=== PATIENT | male | born 1940 | race Caucasian/White ===

== ENCOUNTER 2021-08-29 11:53 | Observation (INO) | payer MEDICARE, OTHER ==
[~2021-08-29] VITALS: Ht 162.6 cm; Wt 68.4 kg
[2021-08-29] MEDS ORDERED: IV NORMAL SALINE 1000ML BAG 1,000 ML IV ONE (12:15)
[2021-08-29 12:26] LABS: BASO % 0 % (0-3); EOS # 0.1 x10^3/uL (0.0-0.7); EOS % 1 % (0-3); HEMATOCRIT 43.2 % (39.0-53.0); HEMOGLOBIN 14.3 g/dL (13.0-17.5); LYMPH # 1.6 x10^3/uL (1.0-4.8); LYMPH % 23 % (24-48); MEAN CORPUSCULAR HEMOGLOBIN 30 pg (25-35); MEAN CORPUSCULAR HGB CONC 33 g/dL (31-37); MEAN CORPUSCULAR VOLUME 91 fL (79-100); MONO # 0.5 x10^3/uL (0.0-1.1); MONO % 7 % (0-9); NEUT # 4.9 x10^3/uL (1.8-7.7); NEUT % 69 % (31-73); PLATELET COUNT 224 x10^3/uL (140-400); RED BLOOD COUNT 4.74 x10^6/uL (4.30-5.70); RED CELL DISTRIBUTION WIDTH 13.7 % (11.5-14.5); WHITE BLOOD COUNT 7.2 x10^3/uL (4.0-11.0)
[2021-08-29 12:35] LABS: PROTHROMBIN TIME PATIENT 12.6 SEC (11.7-14.0)
[2021-08-29 12:37] LABS: CALCIUM 8.8 mg/dL (8.5-10.1); CREATININE 1.2 mg/dL (0.7-1.3); GFR 58.3; POTASSIUM 4.1 mmol/L (3.5-5.1)
[2021-08-29 12:41] LABS: BARBITURATES NEG (NEG); BENZODIAZEPINES NEG (NEG); CANNABINOIDS NEG (NEG); COCAINE NEG (NEG); METHADONE NEG (NEG); OPIATES NEG (NEG); PHENCYCLIDINE NEG (NEG)
[2021-08-29 12:44] LABS: ALBUMIN 3.8 g/dL (3.4-5.0); ALBUMIN/GLOBULIN RATIO 1.4 (1.0-1.7); TOTAL PROTEIN 6.5 g/dL (6.4-8.2)
[2021-08-29 12:45] LABS: AMPHETAMINE/METHAMPHETAMINE NEG (NEG)
[2021-08-29 12:57] LABS: BACTERIA,URINE 0 /HPF (0-FEW); WBC,URINE 0 /HPF (0-4)
--- NOTE | 2021-08-29 13:03 | RAD ---
CT HEAD WITHOUT CONTRAST 08/29/2021 12:27 PM Indication: Generalized weakness, confusion Comparison: None Procedure: Multidetector CT imaging of the head was performed without the administration of contrast. Findings: There is no evidence of acute intracranial hemorrhage. There is no evidence of acute territ orial infarction. Please note that CT is limited for evaluation of acute ischemia. No mass effect or midline shift is identified . The ventricles and basilar cisterns have an appropriate appearance. No abnormal extra-axial fluid collections are seen. No acute osseous changes are identified. Impression: No evidence of acute intracranial abnormality CT DOSING PQRS STATEMENT: One or more of the following individualized dose reduction techniques were utilized for this examinat ion: 1. Automated exposure control 2. Adjustment of the mA and/or kV according to patient size 3. Use of iterative reconstruction technique Electronically signed by: Eduardo Sprague MD (08/29/2021 1:00 PM) [id number]
--- NOTE | 2021-08-29 13:20 | PHYS DOC ---
Past Medical History Past Surgical History: Other Additional Past Surgical Histo: Cardiac stents x2 Smoking Status: Never Smoker Alcohol Use: Rarely Adult General Chief Complaint Chief Complaint: WEAKNESS/GENERALIZED HPI HPI Patient is a 81 year old male presenting to emergency department for evaluation of sudden onset generalized weakness and reported confusion. Patient says that [facility] this [facility] he was having dizziness that he describes as a lightheaded sensation and his vision was becoming blurry but he denied any room spinning or vertigo sensation. He did not tell his about this as he started to feel better and was back to his baseline by the time he left. Patient was then sitting down to watch the Masters and he said all of a sudden he became globally weak and dizzy again feeling lightheaded. His came to check on him and she was asking him questions and he could not answer what the sport he was watching on TV was. After the realized he was confused she called 9 1 and he was brought here for further evaluation. Patient is alert and oriented x3 for me and he denies any pain fevers chills nausea vomiting unilateral weakness numbness or tingling rather he says he just generally feels bad and weak. He is in no acute distress with normal vital signs. Review of Systems Review of Systems Constitutional: Denies fever or chills [] Eyes: Positive transient blurred vision HENT: Denies nasal congestion or sore throat [] Respiratory: Denies cough or shortness of breath [] Cardiovascular: No additional information not addressed in HPI [] GI: Denies abdominal pain, nausea, vomiting, bloody stools or diarrhea [] : Denies dysuria or hematuria [] Musculoskeletal: Denies back pain or joint pain [] Integument: Denies rash or skin lesions [] Neurologic: Denies headache, focal weakness or sensory changes [] All other systems were reviewed and found to be within normal limits, except as documented in this note. Current Medications Current Medications Current Medications Medications (Trade) Dose Ordered Sig/Kishore Start Time Stop Time Status Last Admin Dose Admin Sodium Chloride 1,000 ml @ 1,000 mls/hr 1X ONCE 08/29/21 12:15 08/29/21 13:14 08/29/21 12:27 1,000 MLS/HR Allergies Allergies Allergies Coded Allergies Type Severity Reaction Last Updated Verified No Known Drug Allergies 08/29/21 No Physical Exam Physical Exam Constitutional: Well developed, well nourished, no acute distress, non-toxic appearance. [] HENT: Normocephalic, atraumatic, bilateral external ears normal, oropharynx moist, no oral exudates, nose normal. [] Eyes: PERRLA, EOMI, conjunctiva normal, no discharge. [] Neck: Normal range of motion, no tenderness, supple, no stridor. [] Cardiovascular:Heart rate regular rhythm, no murmur [] Lungs & Thorax: Bilateral breath sounds clear to auscultation [] Abdomen: Bowel sounds normal, soft, no tenderness, no masses, no pulsatile masses. [] Skin: Warm, dry, no erythema, no rash. [] Back: No tenderness, no CVA tenderness. [] Extremities: No tenderness, no cyanosis, no clubbing, ROM intact, no edema. [] Neurologic: Alert and oriented X 3, normal motor function, normal sensory function, no focal deficits noted. Normal juylat-ud-lrwm and wljp-pv-zxdy. 5 out of 5 strength in all extremities. Current Patient Data Vital Signs Vital Signs Date Time Temp Pulse Resp B/P (MAP) Pulse Ox O2 Delivery O2 Flow Rate FiO2 08/29/21 11:55 97.6 59 18 175/82 (113) 100 Room Air 97.6 Lab Values Laboratory Tests Test 08/29/21 11:55 08/29/21 12:23 White Blood Count 7.2 x10^3/uL (4.0-11.0) Red Blood Count 4.74 x10^6/uL (4.30-5.70) Hemoglobin 14.3 g/dL (13.0-17.5) Hematocrit 43.2 % (39.0-53.0) Mean Corpuscular Volume 91 fL (79-100) Mean Corpuscular Hemoglobin 30 pg (25-35) Mean Corpuscular Hemoglobin Concent 33 g/dL (31-37) Red Cell Distribution Width 13.7 % (11.5-14.5) Platelet Count 224 x10^3/uL (140-400) Neutrophils (%) (Auto) 69 % (31-73) Lymphocytes (%) (Auto) 23 % (24-48) L Monocytes (%) (Auto) 7 % (0-9) Eosinophils (%) (Auto) 1 % (0-3) Basophils (%) (Auto) 0 % (0-3) Neutrophils # (Auto) 4.9 x10^3/uL (1.8-7.7) Lymphocytes # (Auto) 1.6 x10^3/uL (1.0-4.8) Monocytes # (Auto) 0.5 x10^3/uL (0.0-1.1) Eosinophils # (Auto) 0.1 x10^3/uL (0.0-0.7) Basophils # (Auto) 0.0 x10^3/uL (0.0-0.2) Prothrombin Time 12.6 SEC (11.7-14.0) Prothrombin Time INR 1.0 (0.8-1.1) Activated Partial Thromboplast Time 27 SEC (24-38) Sodium Level 136 mmol/L (136-145) Potassium Level 4.1 mmol/L (3.5-5.1) Chloride Level 101 mmol/L (98-107) Carbon Dioxide Level 27 mmol/L (21-32) Anion Gap 8 (6-14) Blood Urea Nitrogen 35 mg/dL (8-26) H Creatinine 1.2 mg/dL (0.7-1.3) Estimated GFR (Cockcroft-Gault) 58.3 BUN/Creatinine Ratio 29 (6-20) H Glucose Level 139 mg/dL (70-99) H Calcium Level 8.8 mg/dL (8.5-10.1) Total Bilirubin 1.0 mg/dL (0.2-1.0) Aspartate Amino Transferase (AST) 20 U/L (15-37) Alanine Aminotransferase (ALT) 28 U/L (16-63) Alkaline Phosphatase 66 U/L (46-116) Creatine Kinase 105 U/L (39-308) Troponin I High Sensitivity 6 ng/L (4-75) DG-Lkc-N-Type Natriuretic Peptide 108 pg/mL (0-449) Total Protein 6.5 g/dL (6.4-8.2) Albumin 3.8 g/dL (3.4-5.0) Albumin/Globulin Ratio 1.4 (1.0-1.7) Thyroid Stimulating Hormone (TSH) 5.002 uIU/mL (0.358-3.74) H Ethyl Alcohol Level < 10 mg/dL (0-10) Urine Collection Type Unknown Urine Color (Auto) Light yellow Urine Turbidity Clear Urine pH (Auto) 6.0 (<5.0-8.0) Urine Specific [place] 1.014 (1.000-1.030) Urine Protein (Auto) Negative mg/dL (Negative) Urine Glucose (Auto)(UA) Negative mg/dL (Negative) Urine Ketones (Auto) Negative mg/dL (Negative) Urine Blood (Auto) Negative (Negative) Urine Nitrite Negative (Negative) Urine Bilirubin (Auto) Negative (Negative) Urine Urobilinogen (Auto) Normal mg/dL (Normal) Urine Leukocyte Esterase (Auto) Negative (Negative) Urine RBC 3-5 /HPF (0-2) Urine WBC 0 /HPF (0-4) Urine Squamous Epithelial Cells Occ /LPF Urine Bacteria 0 /HPF (0-FEW) Urine Opiates Screen Neg (NEG) Urine Methadone Screen Neg (NEG) Urine Barbiturates Neg (NEG) Urine Phencyclidine Screen Neg (NEG) Urine Amphetamine/Methamphetamine Neg (NEG) Urine Benzodiazepines Screen Neg (NEG) Urine Cocaine Screen Neg (NEG) Urine Cannabinoids Screen Neg (NEG) Urine Ethyl Alcohol Neg (NEG) Laboratory Tests 08/29/21 11:55 Laboratory Tests 08/29/21 11:55 EKG EKG Sinus rhythm at 57 bpm with normal axis no ST elevation or depression and normal T waves and normal intervals. Radiology/Procedures Radiology/Procedures [] Course & Med Decision Making Course & Med Decision Making Patient's work-up is negative thus far. He has an NIH stroke scale equal to 0. Given patient's confusion with global weakness we will plan on admission for further observation and treatment. He is not a TPA candidate given he has an NIH stroke scale of 0 and there is no signs or symptoms of a large vessel occlusion. Dr. Gutierrez will be consulted regarding his confusion. Dragon Disclaimer Dragon Disclaimer This electronic medical record was generated, in whole or in part, using a voice recognition dictation system. Departure Departure Impression: Primary Impression: Confusion Additional Impression: Generalized weakness Disposition: ADMITTED INPATIENT Admitting Physician: ALYCIA Hilario) Condition: STABLE Referrals: AMANDA KHAN III, MD (PCP) Problem Qualifiers NICHELLE OLIVAREZ DO Aug 29, 2021 13:20
[2021-08-29] MEDS ORDERED: ONDANSETRON PF 4 MG/2 ML VIAL. IVP PRN (13:30)
--- NOTE | 2021-08-29 14:12 | EKG ---
[facility] [address] [place] [address] Test Date: 2021-08-29 Test Time: 12:01:40 Pat Name: YOLY SINGH Department: Room: Gender: M Bricklayer Apprentice: : 1940 Requested By: NICHELLE OLIVAREZ Order Number: [id number] Reading MD: Ruben Benjamin Measurements Intervals Ho[place] Rate: 57 P: 44 IN: 154 QRS: 2 QRSD: 84 T: 28 QT: 390 QTc: 382 Interpretive Statements SINUS RHYTHM NORMAL ECG RI6.02 No previous ECG available for comparison Electronically Signed On 09-06-2021 14:21:58 CDT by Ruben Benjamin
--- NOTE | 2021-08-29 14:39 | PDOC2 ---
NEUROLOGY CONSULT Date of Service DOS: DATE: 08/29/21 TIME: 14:35 Reason for Consult Reason for Consult: Altered mental status Source Source: Caregiver (), Chart review, Patient History of Present Illness History of Present Illness The patient is an 81-year-old right-handed male who went to [facility] this morning and was dizzy and a little bit confused. He had blurred vision. There was no true vertigo, diplopia, dysphagia, dysarthria, numbness, or weakness. He felt back to himself within a few minutes and then went home to watch the Masters. All of a sudden he became globally weak and confused. He was dizzy. His says that he had trouble figuring out what the Masters was even though he plays golf several times a week. She called 911. Blood pressure is elevated more than his usual, the patient says. He is feeling a lot better now. He denies headache. There is no prior history of stroke, seizure, or head injury. Past Medical History Cardiovascular: HTN Past Surgical History Past Surgical History: No pertinent history Family History Family History: No pertinent hx Social History Social History , occasional alcohol, retired, no tobacco Current Medications Current Medications Current Medications Sodium Chloride 1,000 ml @ 1,000 mls/hr 1X ONCE IV Last administered on 08/29/21at 12:27; Start 08/29/21 at 12:15; Stop 08/29/21 at 13:14; Status DC Ondansetron HCl (Zofran) 4 mg PRN Q8HRS PRN IVP NAUSEA/VOMITING; Start 08/29/21 at 13:30; Stop 08/30/21 at 13:29 Allergies Allergies: Coded Allergies: No Known Drug Allergies (Unverified , 08/29/21) ROS Review of System Negative for fever, chills, weight loss, shortness of breath, chest pain, indigestion, hematochezia, melena, and dysuria. Full 14-point review of systems is negative. Physical Exam Physical Examination General: Well-developed, well-nourished white male in no acute distress HEENT: Normocephalic andatraumatic. Temporal arteriespulsatile and nontender. Neck: Supple without bruit, no meningismus Musculoskeletal: Stability:see neurologic. Gait exam:see neurologic. Tone:see neurologic.Strength:see neurologic. Neurological: Mental Status:intact, orientation, memory, attention span/concentration, language, fund of knowledge normal, except he does not know the name of the president. Cranial Nerves:Pupils equal and reactive to light, extraocular movements areintact, visual rizzo are full to confrontation. Facial sensation is normal. There is no facial asymmetry. Vestibulo-ocular reflex is intact. Palate elevates and tongue protrudes in midline. All other cranial related problems are negative except as mentioned before.Reflexes:2+ and symmetric with flexor plantar responses. Motor:5/5 strength with normal tone and bulk. Coordination:Finger-nose finger and hnco-fu-zqqs testing are normal. Rapid alternating movements and fine finger movements are intact. Gait:Not tested. Sensory:Normal pinprick, vibration, light touch, proprioception. Vitals VITALS Vital Signs Date Time Temp Pulse Resp B/P (MAP) Pulse Ox O2 Delivery O2 Flow Rate FiO2 08/29/21 11:55 97.6 59 18 175/82 (113) 100 Room Air 97.6 Labs Labs Laboratory Tests Test 08/29/21 11:55 08/29/21 12:23 White Blood Count 7.2 x10^3/uL (4.0-11.0) Red Blood Count 4.74 x10^6/uL (4.30-5.70) Hemoglobin 14.3 g/dL (13.0-17.5) Hematocrit 43.2 % (39.0-53.0) Mean Corpuscular Volume 91 fL (79-100) Mean Corpuscular Hemoglobin 30 pg (25-35) Mean Corpuscular Hemoglobin Concent 33 g/dL (31-37) Red Cell Distribution Width 13.7 % (11.5-14.5) Platelet Count 224 x10^3/uL (140-400) Neutrophils (%) (Auto) 69 % (31-73) Lymphocytes (%) (Auto) 23 % (24-48) Monocytes (%) (Auto) 7 % (0-9) Eosinophils (%) (Auto) 1 % (0-3) Basophils (%) (Auto) 0 % (0-3) Neutrophils # (Auto) 4.9 x10^3/uL (1.8-7.7) Lymphocytes # (Auto) 1.6 x10^3/uL (1.0-4.8) Monocytes # (Auto) 0.5 x10^3/uL (0.0-1.1) Eosinophils # (Auto) 0.1 x10^3/uL (0.0-0.7) Basophils # (Auto) 0.0 x10^3/uL (0.0-0.2) Prothrombin Time 12.6 SEC (11.7-14.0) Prothromb Time International Ratio 1.0 (0.8-1.1) Activated Partial Thromboplast Time 27 SEC (24-38) Sodium Level 136 mmol/L (136-145) Potassium Level 4.1 mmol/L (3.5-5.1) Chloride Level 101 mmol/L (98-107) Carbon Dioxide Level 27 mmol/L (21-32) Anion Gap 8 (6-14) Blood Urea Nitrogen 35 mg/dL (8-26) Creatinine 1.2 mg/dL (0.7-1.3) Estimated GFR (Cockcroft-Gault) 58.3 BUN/Creatinine Ratio 29 (6-20) Glucose Level 139 mg/dL (70-99) Calcium Level 8.8 mg/dL (8.5-10.1) Total Bilirubin 1.0 mg/dL (0.2-1.0) Aspartate Amino Transf (AST/SGOT) 20 U/L (15-37) Alanine Aminotransferase (ALT/SGPT) 28 U/L (16-63) Alkaline Phosphatase 66 U/L (46-116) Creatine Kinase 105 U/L (39-308) Troponin I High Sensitivity 6 ng/L (4-75) LO-Aqh-Y-Type Natriuretic Peptide 108 pg/mL (0-449) Total Protein 6.5 g/dL (6.4-8.2) Albumin 3.8 g/dL (3.4-5.0) Albumin/Globulin Ratio 1.4 (1.0-1.7) Thyroid Stimulating Hormone (TSH) 5.002 uIU/mL (0.358-3.74) Ethyl Alcohol Level < 10 mg/dL (0-10) Urine Collection Type Unknown Urine Color (Auto) Light yellow Urine Turbidity Clear Urine pH (Auto) 6.0 (<5.0-8.0) Urine Specific [place] 1.014 (1.000-1.030) Urine Protein (Auto) Negative mg/dL (Negative) Urine Glucose (Auto)(UA) Negative mg/dL (Negative) Urine Ketones (Auto) Negative mg/dL (Negative) Urine Blood (Auto) Negative (Negative) Urine Nitrite Negative (Negative) Urine Bilirubin (Auto) Negative (Negative) Urine Urobilinogen (Auto) Normal mg/dL (Normal) Urine Leukocyte Esterase (Auto) Negative (Negative) Urine RBC 3-5 /HPF (0-2) Urine WBC 0 /HPF (0-4) Urine Squamous Epithelial Cells Occ /LPF Urine Bacteria 0 /HPF (0-FEW) Urine Opiates Screen Neg (NEG) Urine Methadone Screen Neg (NEG) Urine Barbiturates Neg (NEG) Urine Phencyclidine Screen Neg (NEG) Urine Amphetamine/Methamphetamine Neg (NEG) Urine Benzodiazepines Screen Neg (NEG) Urine Cocaine Screen Neg (NEG) Urine Cannabinoids Screen Neg (NEG) Urine Ethyl Alcohol Neg (NEG) Laboratory Tests Test 08/29/21 11:55 08/29/21 12:23 White Blood Count 7.2 x10^3/uL (4.0-11.0) Red Blood Count 4.74 x10^6/uL (4.30-5.70) Hemoglobin 14.3 g/dL (13.0-17.5) Hematocrit 43.2 % (39.0-53.0) Mean Corpuscular Volume 91 fL (79-100) Mean Corpuscular Hemoglobin 30 pg (25-35) Mean Corpuscular Hemoglobin Concent 33 g/dL (31-37) Red Cell Distribution Width 13.7 % (11.5-14.5) Platelet Count 224 x10^3/uL (140-400) Neutrophils (%) (Auto) 69 % (31-73) Lymphocytes (%) (Auto) 23 % (24-48) Monocytes (%) (Auto) 7 % (0-9) Eosinophils (%) (Auto) 1 % (0-3) Basophils (%) (Auto) 0 % (0-3) Neutrophils # (Auto) 4.9 x10^3/uL (1.8-7.7) Lymphocytes # (Auto) 1.6 x10^3/uL (1.0-4.8) Monocytes # (Auto) 0.5 x10^3/uL (0.0-1.1) Eosinophils # (Auto) 0.1 x10^3/uL (0.0-0.7) Basophils # (Auto) 0.0 x10^3/uL (0.0-0.2) Prothrombin Time 12.6 SEC (11.7-14.0) Prothromb Time International Ratio 1.0 (0.8-1.1) Activated Partial Thromboplast Time 27 SEC (24-38) Sodium Level 136 mmol/L (136-145) Potassium Level 4.1 mmol/L (3.5-5.1) Chloride Level 101 mmol/L (98-107) Carbon Dioxide Level 27 mmol/L (21-32) Anion Gap 8 (6-14) Blood Urea Nitrogen 35 mg/dL (8-26) Creatinine 1.2 mg/dL (0.7-1.3) Estimated GFR (Cockcroft-Gault) 58.3 BUN/Creatinine Ratio 29 (6-20) Glucose Level 139 mg/dL (70-99) Calcium Level 8.8 mg/dL (8.5-10.1) Total Bilirubin 1.0 mg/dL (0.2-1.0) Aspartate Amino Transf (AST/SGOT) 20 U/L (15-37) Alanine Aminotransferase (ALT/SGPT) 28 U/L (16-63) Alkaline Phosphatase 66 U/L (46-116) Creatine Kinase 105 U/L (39-308) Troponin I High Sensitivity 6 ng/L (4-75) EV-Mwv-M-Type Natriuretic Peptide 108 pg/mL (0-449) Total Protein 6.5 g/dL (6.4-8.2) Albumin 3.8 g/dL (3.4-5.0) Albumin/Globulin Ratio 1.4 (1.0-1.7) Thyroid Stimulating Hormone (TSH) 5.002 uIU/mL (0.358-3.74) Ethyl Alcohol Level < 10 mg/dL (0-10) Urine Collection Type Unknown Urine Color (Auto) Light yellow Urine Turbidity Clear Urine pH (Auto) 6.0 (<5.0-8.0) Urine Specific [place] 1.014 (1.000-1.030) Urine Protein (Auto) Negative mg/dL (Negative) Urine Glucose (Auto)(UA) Negative mg/dL (Negative) Urine Ketones (Auto) Negative mg/dL (Negative) Urine Blood (Auto) Negative (Negative) Urine Nitrite Negative (Negative) Urine Bilirubin (Auto) Negative (Negative) Urine Urobilinogen (Auto) Normal mg/dL (Normal) Urine Leukocyte Esterase (Auto) Negative (Negative) Urine RBC 3-5 /HPF (0-2) Urine WBC 0 /HPF (0-4) Urine Squamous Epithelial Cells Occ /LPF Urine Bacteria 0 /HPF (0-FEW) Urine Opiates Screen Neg (NEG) Urine Methadone Screen Neg (NEG) Urine Barbiturates Neg (NEG) Urine Phencyclidine Screen Neg (NEG) Urine Amphetamine/Methamphetamine Neg (NEG) Urine Benzodiazepines Screen Neg (NEG) Urine Cocaine Screen Neg (NEG) Urine Cannabinoids Screen Neg (NEG) Urine Ethyl Alcohol Neg (NEG) Images Images CT HEAD WITHOUT CONTRAST 08/29/2021 12:27 PM Indication: Generalized weakness, confusion Comparison: None Procedure: Multidetector CT imaging of the head was performed without the administration of contrast. Findings: There is no evidence of acute intracranial hemorrhage. There is no evidence of acute territorial infarction. Please note that CT is limited for evaluation of acute ischemia. No mass effect or midline shift is identified . The ventricles and basilar cisterns have an appropriate appearance. No abnormal extra-axial fluid collections are seen. No acute osseous changes are identified. Impression: No evidence of acute intracranial abnormality Assessment/Plan Assessment/Plan Impression: Global neurological issues, nothing that focal, nonfocal exam, and symptoms are improving. I suspect this is hypertensive encephalopathy. I find no evidence of stroke. There are no obvious other metabolic issues. Recommendations: Permissive hypertension for now Aspirin CT angiogram today MRI of the brain on a routine basis Not a candidate for alteplase given the fact that symptoms started 5 and half hours ago and again I have a low suspicion that this is a stroke. Discussed with patient and his Discussed with Dr. Morales Thank you for letting me help with the patient's care. BYRON CRAFT MD Aug 29, 2021 14:39
[2021-08-29] MEDS ORDERED: IOHEXOL 350 MG/ML 100 ML VIAL. IV ONE (14:45)
[2021-08-29] MEDS ORDERED: ASPIRIN RECTAL 300 MG SUPP. PR PRN (14:45)
[2021-08-29] MEDS ORDERED: CONTRAST GIVEN. MC PRN (14:45)
--- NOTE | 2021-08-29 16:53 | RAD ---
EXAMINATION: CTA HEAD AND NECK W/WO CONTRAST CLINICAL HISTORY: Confusion, dizziness. TECHNIQUE: Spiral high resolution axial images were obtained through the head, neck and superior medi astinum following bolus administration of intravenous contrast for CT angiography. 3D maximum intensi ty projection images also performed. CT Dose Reduction Employed: One or more of the following individualized dose reduction techniques wer e utilized for this examination: 1. Automated exposure control 2. Adjustment of the mA and/or kV ac cording to patient size 3. Use of iterative reconstruction technique. COMPARISON: NECT head same day FINDINGS: BRAIN: No evidence of acute ischemic stroke or intracranial hemorrhage. NECK: Soft Tissues: Unremarkable. Spine: Multilevel cervicothoracic degenerative changes.. Lung Apices: Centrilobular emphysema and dependent subsegmental atelectasis. CT ARTERIOGRAM: Extracranial Circulation: Aortic Arch: Normal branching pattern from the aortic arch. No significant stenosis in the proximal b rachiocephalic vessels. Carotid Stenosis: Right Common: No significant stenosis. Right Internal Carotid Plaque: Moderate mixed plaque in the carotid bulb. Right Internal Carotid Stenosis (% by NASCET Criteria): No significant stenosis. Left Common: No significant stenosis. Left Internal Carotid Plaque: Minimal mixed plaque in the carotid bulb. Left Internal Carotid Stenosis (% by NASCET Criteria): No significant stenosis. Cervical Vertebral Arteries: Patency: Bilateral Dominance: Left Intracranial Circulation: Anterior Circulation: No evidence of large vessel occlusion. Mild calcified plaque in the intracrania l portion of the bilateral internal carotid arteries. Vertebrobasilar Circulation: No evidence of large vessel occlusion. Diminutive vertebrobasilar circul ation with diffusely small caliber vessels in the posterior circulation. IMPRESSION: No evidence of large vessel occlusion or significant carotid arterial stenosis. Diminutive vertebrobasilar circulation with diffusely small caliber vessels. Electronically signed by: Romain Diana DO (08/29/2021 4:51 PM) [id number]
[2021-08-29] MEDS: ASPIRIN ENTERIC COATED 325 MG TABLET.DR. PO SCH (17:03)
[2021-08-29] MEDS ORDERED: LISI20TA18 PO (18:10)
[2021-08-29] MEDS ORDERED: METO-239 PO (18:10)
[2021-08-29] MEDS ORDERED: ATOR40TA59 PO (18:10)
[2021-08-29] MEDS ORDERED: TAMS0.4C97 PO (18:10)
[2021-08-29] MEDS ORDERED: ASPI-630 PO (18:10)
[2021-08-29 19:00] VITALS: BP 164/51
[2021-08-29] MEDS: TAMSULOSIN 0.4 MG CAP.ER.24H. PO SCH (19:00)
[2021-08-29] MEDS: LISINOPRIL 20 MG TABLET PO SCH (19:00)
[2021-08-29] MEDS: METOPROLOL SUCC 24HR ER 50 MG TAB.ER.24H. PO SCH (19:00)
--- NOTE | 2021-08-29 19:18 | PDOC1 ---
History and Physical Date of Admission Date of Admission DATE: 08/29/21 TIME: 19:10 History of Present Illness History of Present Illness Lalo Potter is a 81 year old male admit for new weakness and confusion. He was out today and had new dizziness, was lightheaded. He had to sit down, and the strange sensatino was improved slowly over time. LAte at home, dizzy again and lightheaded and he could not speak or answer and did not respond well, so she called the ambulance. he reports feeling much improved this evening. he still golfs and is very active Past Medical History Cardiovascular: HTN Past Surgical History Past Surgical History: No pertinent history Family History Family History: No Significant Social History Smoke: No ALCOHOL: none Drugs: None Current Problem List Problem List Problems Medical Problems: (1) Confusion Status: Acute (2) Generalized weakness Status: Acute Current Medications Current Medications Current Medications Sodium Chloride 1,000 ml @ 1,000 mls/hr 1X ONCE IV Last administered on 08/29/21at 12:27; Start 08/29/21 at 12:15; Stop 08/29/21 at 13:14; Status DC Ondansetron HCl (Zofran) 4 mg PRN Q8HRS PRN IVP NAUSEA/VOMITING; Start 08/29/21 at 13:30; Stop 08/30/21 at 13:29 Aspirin (Ecotrin) 325 mg DAILYWBKFT PO Last administered on 08/29/21at 17:03; Start 08/29/21 at 15:00 Aspirin (Aspirin Rectal Supp) 300 mg PRN DAILY PRN [place] IF UNABLE TO TAKE PO; Start 08/29/21 at 14:45 Iohexol (Omnipaque 350 Mg/ml) 75 ml 1X ONCE IV Last administered on 08/29/21at 14:49; Start 08/29/21 at 14:45; Stop 08/29/21 at 14:46; Status DC Info (CONTRAST GIVEN -- Rx MONITORING) 1 each PRN DAILY PRN MC SEE COMMENTS; Start 08/29/21 at 14:45; Stop 08/31/21 at 14:44 Aspirin (Aspirin Chewable) 81 mg DAILY PO ; Start 08/30/21 at 09:00; Status Cancel Atorvastatin Calcium (Lipitor) 40 mg HS PO ; Start 08/29/21 at 21:00 Lisinopril (Prinivil) 20 mg DAILY PO ; Start 08/29/21 at 19:00 Metoprolol Succinate (Toprol Xl) 50 mg DAILY PO ; Start 08/29/21 at 19:00 Tamsulosin HCl (Flomax) 0.4 mg DAILY PO ; Start 08/29/21 at 19:00 Active Scripts Active Reported Flomax (Tamsulosin Hcl) 0.4 Mg Cap.er.24h 0.4 Mg PO DAILY Aspirin 81 Mg Tab.chew 81 Mg PO DAILY Atorvastatin Calcium 40 Mg Tablet 40 Mg PO HS Metoprolol Succinate ( Xl ) (Metoprolol Succinate) 25 Mg Tab.er.24h 50 Mg PO DAILY Lisinopril 20 Mg Tablet 20 Mg PO DAILY Allergies Allergies: Coded Allergies: No Known Drug Allergies (Unverified , 08/29/21) ROS General: YES: Chills; No: Night Sweats, Fatigue, Malaise, Appetite, Other PSYCHOLOGICAL ROS: No: Anxiety, Behavioral Disorder, Concentration difficultie, Decreased libido, Depression, Disorientation, Hallucinations, Hostility, Irritablity, Memory difficulties, Mood Swings, Obsessive thoughts, Physical abuse, Sexual abuse, Sleep disturbances, Suicidal ideation, Other Eyes: No Blurry vision, No Decreased vision, No Double vision, No Dry eyes, No Excessive tearing, No Eye Pain, No Itchy Eyes, No Loss of vision, No Photophob ia, No Scotomata, No Uses contacts, No Uses glasses, No Other HEENT: No: Heacaches, Visual Changes, Hearing change, Nasal congestion, Nasal discharge, Oral lesions, Sinus pain, Sore Throat, Epistaxis, Sneezing, Snoring, Tinnitus, Vertigo, Vocal changes, Other Respiratory: No: Cough, Hemoptysis, Orthopnea, Pleuritic Pain, Shortness of breath, SOB with excertion, Sputum Changes, Stridor, Tachypnea, Wheezing, Other Cardiovascular: No Chest Pain, No Palpitations, No Orthopnea, No Paroxysmal Noc. Dyspnea, No Edema, No Lt Headedness, No Other Gastrointestinal: No Nausea, No Vomiting, No Abdominal Pain, No Diarrhea, No Constipation, No Melena, No Hematochezia, No Other Vitals Vitals Vital Signs Date Time Temp Pulse Resp B/P (MAP) Pulse Ox O2 Delivery O2 Flow Rate FiO2 08/29/21 16:57 Room Air 08/29/21 14:04 54 20 176/75 (108) 100 08/29/21 11:55 97.6 97.6 Labs Labs Laboratory Tests Test 08/29/21 11:55 08/29/21 12:23 White Blood Count 7.2 x10^3/uL (4.0-11.0) Red Blood Count 4.74 x10^6/uL (4.30-5.70) Hemoglobin 14.3 g/dL (13.0-17.5) Hematocrit 43.2 % (39.0-53.0) Mean Corpuscular Volume 91 fL (79-100) Mean Corpuscular Hemoglobin 30 pg (25-35) Mean Corpuscular Hemoglobin Concent 33 g/dL (31-37) Red Cell Distribution Width 13.7 % (11.5-14.5) Platelet Count 224 x10^3/uL (140-400) Neutrophils (%) (Auto) 69 % (31-73) Lymphocytes (%) (Auto) 23 % (24-48) Monocytes (%) (Auto) 7 % (0-9) Eosinophils (%) (Auto) 1 % (0-3) Basophils (%) (Auto) 0 % (0-3) Neutrophils # (Auto) 4.9 x10^3/uL (1.8-7.7) Lymphocytes # (Auto) 1.6 x10^3/uL (1.0-4.8) Monocytes # (Auto) 0.5 x10^3/uL (0.0-1.1) Eosinophils # (Auto) 0.1 x10^3/uL (0.0-0.7) Basophils # (Auto) 0.0 x10^3/uL (0.0-0.2) Prothrombin Time 12.6 SEC (11.7-14.0) Prothromb Time International Ratio 1.0 (0.8-1.1) Activated Partial Thromboplast Time 27 SEC (24-38) Sodium Level 136 mmol/L (136-145) Potassium Level 4.1 mmol/L (3.5-5.1) Chloride Level 101 mmol/L (98-107) Carbon Dioxide Level 27 mmol/L (21-32) Anion Gap 8 (6-14) Blood Urea Nitrogen 35 mg/dL (8-26) Creatinine 1.2 mg/dL (0.7-1.3) Estimated GFR (Cockcroft-Gault) 58.3 BUN/Creatinine Ratio 29 (6-20) Glucose Level 139 mg/dL (70-99) Calcium Level 8.8 mg/dL (8.5-10.1) Total Bilirubin 1.0 mg/dL (0.2-1.0) Aspartate Amino Transf (AST/SGOT) 20 U/L (15-37) Alanine Aminotransferase (ALT/SGPT) 28 U/L (16-63) Alkaline Phosphatase 66 U/L (46-116) Creatine Kinase 105 U/L (39-308) Troponin I High Sensitivity 6 ng/L (4-75) DB-Gkx-D-Type Natriuretic Peptide 108 pg/mL (0-449) Total Protein 6.5 g/dL (6.4-8.2) Albumin 3.8 g/dL (3.4-5.0) Albumin/Globulin Ratio 1.4 (1.0-1.7) Thyroid Stimulating Hormone (TSH) 5.002 uIU/mL (0.358-3.74) Ethyl Alcohol Level < 10 mg/dL (0-10) Urine Collection Type Unknown Urine Color (Auto) Light yellow Urine Turbidity Clear Urine pH (Auto) 6.0 (<5.0-8.0) Urine Specific [place] 1.014 (1.000-1.030) Urine Protein (Auto) Negative mg/dL (Negative) Urine Glucose (Auto)(UA) Negative mg/dL (Negative) Urine Ketones (Auto) Negative mg/dL (Negative) Urine Blood (Auto) Negative (Negative) Urine Nitrite Negative (Negative) Urine Bilirubin (Auto) Negative (Negative) Urine Urobilinogen (Auto) Normal mg/dL (Normal) Urine Leukocyte Esterase (Auto) Negative (Negative) Urine RBC 3-5 /HPF (0-2) Urine WBC 0 /HPF (0-4) Urine Squamous Epithelial Cells Occ /LPF Urine Bacteria 0 /HPF (0-FEW) Urine Opiates Screen Neg (NEG) Urine Methadone Screen Neg (NEG) Urine Barbiturates Neg (NEG) Urine Phencyclidine Screen Neg (NEG) Urine Amphetamine/Methamphetamine Neg (NEG) Urine Benzodiazepines Screen Neg (NEG) Urine Cocaine Screen Neg (NEG) Urine Cannabinoids Screen Neg (NEG) Urine Ethyl Alcohol Neg (NEG) Laboratory Tests Test 4/7/22 11:55 08/29/21 12:23 White Blood Count 7.2 x10^3/uL (4.0-11.0) Red Blood Count 4.74 x10^6/uL (4.30-5.70) Hemoglobin 14.3 g/dL (13.0-17.5) Hematocrit 43.2 % (39.0-53.0) Mean Corpuscular Volume 91 fL (79-100) Mean Corpuscular Hemoglobin 30 pg (25-35) Mean Corpuscular Hemoglobin Concent 33 g/dL (31-37) Red Cell Distribution Width 13.7 % (11.5-14.5) Platelet Count 224 x10^3/uL (140-400) Neutrophils (%) (Auto) 69 % (31-73) Lymphocytes (%) (Auto) 23 % (24-48) Monocytes (%) (Auto) 7 % (0-9) Eosinophils (%) (Auto) 1 % (0-3) Basophils (%) (Auto) 0 % (0-3) Neutrophils # (Auto) 4.9 x10^3/uL (1.8-7.7) Lymphocytes # (Auto) 1.6 x10^3/uL (1.0-4.8) Monocytes # (Auto) 0.5 x10^3/uL (0.0-1.1) Eosinophils # (Auto) 0.1 x10^3/uL (0.0-0.7) Basophils # (Auto) 0.0 x10^3/uL (0.0-0.2) Prothrombin Time 12.6 SEC (11.7-14.0) Prothromb Time International Ratio 1.0 (0.8-1.1) Activated Partial Thromboplast Time 27 SEC (24-38) Sodium Level 136 mmol/L (136-145) Potassium Level 4.1 mmol/L (3.5-5.1) Chloride Level 101 mmol/L (98-107) Carbon Dioxide Level 27 mmol/L (21-32) Anion Gap 8 (6-14) Blood Urea Nitrogen 35 mg/dL (8-26) Creatinine 1.2 mg/dL (0.7-1.3) Estimated GFR (Cockcroft-Gault) 58.3 BUN/Creatinine Ratio 29 (6-20) Glucose Level 139 mg/dL (70-99) Calcium Level 8.8 mg/dL (8.5-10.1) Total Bilirubin 1.0 mg/dL (0.2-1.0) Aspartate Amino Transf (AST/SGOT) 20 U/L (15-37) Alanine Aminotransferase (ALT/SGPT) 28 U/L (16-63) Alkaline Phosphatase 66 U/L (46-116) Creatine Kinase 105 U/L (39-308) Troponin I High Sensitivity 6 ng/L (4-75) DE-Yza-D-Type Natriuretic Peptide 108 pg/mL (0-449) Total Protein 6.5 g/dL (6.4-8.2) Albumin 3.8 g/dL (3.4-5.0) Albumin/Globulin Ratio 1.4 (1.0-1.7) Thyroid Stimulating Hormone (TSH) 5.002 uIU/mL (0.358-3.74) Ethyl Alcohol Level < 10 mg/dL (0-10) Urine Collection Type Unknown Urine Color (Auto) Light yellow Urine Turbidity Clear Urine pH (Auto) 6.0 (<5.0-8.0) Urine Specific [place] 1.014 (1.000-1.030) Urine Protein (Auto) Negative mg/dL (Negative) Urine Glucose (Auto)(UA) Negative mg/dL (Negative) Urine Ketones (Auto) Negative mg/dL (Negative) Urine Blood (Auto) Negative (Negative) Urine Nitrite Negative (Negative) Urine Bilirubin (Auto) Negative (Negative) Urine Urobilinogen (Auto) Normal mg/dL (Normal) Urine Leukocyte Esterase (Auto) Negative (Negative) Urine RBC 3-5 /HPF (0-2) Urine WBC 0 /HPF (0-4) Urine Squamous Epithelial Cells Occ /LPF Urine Bacteria 0 /HPF (0-FEW) Urine Opiates Screen Neg (NEG) Urine Methadone Screen Neg (NEG) Urine Barbiturates Neg (NEG) Urine Phencyclidine Screen Neg (NEG) Urine Amphetamine/Methamphetamine Neg (NEG) Urine Benzodiazepines Screen Neg (NEG) Urine Cocaine Screen Neg (NEG) Urine Cannabinoids Screen Neg (NEG) Urine Ethyl Alcohol Neg (NEG) VTE Prophylaxis Ordered VTE Prophylaxis Devices: No VTE Pharmacological Prophylaxi: No Assessment/Plan Assessment/Plan presyncope, watch tele for 23 hours, concern for arrythmia lightheaded and weak episodes, symptoms not consistent with seizure, Dr. Mendoza has seen, and leans to hypertension and encephalopathy r/o CVA , plan MRI obs home htn meds in AM Justifications for Admission Other Justification SOFÍA MÉNDEZ MD Aug 29, 2021 19:18
[2021-08-29] MEDS ORDERED: ATORVASTATIN CALCIUM 40 MG TABLET. PO SCH (21:00)
[2021-08-29] MEDS ORDERED: ZOLPIDEM 5 MG TABLET. PO SCH (22:30)
[2021-08-29 23:00] VITALS: BP 90/54
[2021-08-30 03:00] VITALS: BP 99/61
[2021-08-30 04:51] VITALS: BP 99/61
[2021-08-30 07:00] VITALS: BP 149/67
[2021-08-30] MEDS ORDERED: ASPIRIN CHEWABLE 81 MG TABLET. PO SCH (09:00)
[2021-08-30 09:02] LABS: BASO % 0 % (0-3); EOS # 0.1 x10^3/uL (0.0-0.7); EOS % 1 % (0-3); HEMATOCRIT 42.5 % (39.0-53.0); HEMOGLOBIN 14.1 g/dL (13.0-17.5); LYMPH # 1.4 x10^3/uL (1.0-4.8); LYMPH % 17 % (24-48); MEAN CORPUSCULAR HEMOGLOBIN 30 pg (25-35); MEAN CORPUSCULAR HGB CONC 33 g/dL (31-37); MEAN CORPUSCULAR VOLUME 91 fL (79-100); MONO # 0.5 x10^3/uL (0.0-1.1); MONO % 7 % (0-9); NEUT # 5.9 x10^3/uL (1.8-7.7); NEUT % 75 % (31-73); PLATELET COUNT 221 x10^3/uL (140-400); RED BLOOD COUNT 4.65 x10^6/uL (4.30-5.70); WHITE BLOOD COUNT 7.8 x10^3/uL (4.0-11.0)
[2021-08-30 09:12] LABS: CALCIUM 8.7 mg/dL (8.5-10.1); CREATININE 1.2 mg/dL (0.7-1.3); GFR 58.3; POTASSIUM 4.5 mmol/L (3.5-5.1)
--- NOTE | 2021-08-30 09:18 | PDOC ---
PROGRESS NOTES Date of Service DATE: 08/30/21 TIME: 09:14 Assessment Problems Medical Problems: (1) Confusion Status: Acute (2) Generalized weakness Status: Acute Global neurological issues, nothing that focal, nonfocal exam, and symptoms are improving. I suspect this is hypertensive encephalopathy. I find no evidence of stroke. There are no obvious other metabolic issues. Also consider transient global amnesia, I did not get that picture when I saw him yesterday. Interestingly, though, he is amnestic for most of yesterday. Today he is back to his normal baseline Diminutive vertebrobasilar circulation with diffusely small caliber vessels, of no clinical significance Plan Treat hypertension Aspirin, statin MRI of the brain today Home today if blood pressure stable and MRI negative Discussed with Dr. Yap Subjective No complaints, wants to go home Objective Vital Signs Date Time Temp Pulse Resp B/P (MAP) Pulse Ox O2 Delivery O2 Flow Rate FiO2 08/30/21 07:00 98.3 56 16 149/67 (94) 98 98.3 08/29/21 20:00 Room Air Intake and Output 08/30/21 07:00 Intake Total 1000 ml Balance 1000 ml Intake IV Total 1000 ml # Voids 2 PHYSICAL EXAM Alert. Oriented to time, place and person. PERRL. EOMI. CN: no focal findings. Muscle tone: normal. Muscle strength: 5/5 DTR: 2+ Plantar reflex: Flexor Gait: Normal. Sensory exam: no abnormal findings. No cerebellar signs elicited. Review of Relevant I have reviewed the following items nicole (where applicable) has been applied. Labs Laboratory Tests Test 08/29/21 11:55 08/29/21 12:23 White Blood Count 7.2 x10^3/uL (4.0-11.0) Red Blood Count 4.74 x10^6/uL (4.30-5.70) Hemoglobin 14.3 g/dL (13.0-17.5) Hematocrit 43.2 % (39.0-53.0) Mean Corpuscular Volume 91 fL (79-100) Mean Corpuscular Hemoglobin 30 pg (25-35) Mean Corpuscular Hemoglobin Concent 33 g/dL (31-37) Red Cell Distribution Width 13.7 % (11.5-14.5) Platelet Count 224 x10^3/uL (140-400) Neutrophils (%) (Auto) 69 % (31-73) Lymphocytes (%) (Auto) 23 % (24-48) Monocytes (%) (Auto) 7 % (0-9) Eosinophils (%) (Auto) 1 % (0-3) Basophils (%) (Auto) 0 % (0-3) Neutrophils # (Auto) 4.9 x10^3/uL (1.8-7.7) Lymphocytes # (Auto) 1.6 x10^3/uL (1.0-4.8) Monocytes # (Auto) 0.5 x10^3/uL (0.0-1.1) Eosinophils # (Auto) 0.1 x10^3/uL (0.0-0.7) Basophils # (Auto) 0.0 x10^3/uL (0.0-0.2) Prothrombin Time 12.6 SEC (11.7-14.0) Prothromb Time International Ratio 1.0 (0.8-1.1) Activated Partial Thromboplast Time 27 SEC (24-38) Sodium Level 136 mmol/L (136-145) Potassium Level 4.1 mmol/L (3.5-5.1) Chloride Level 101 mmol/L (98-107) Carbon Dioxide Level 27 mmol/L (21-32) Anion Gap 8 (6-14) Blood Urea Nitrogen 35 mg/dL (8-26) Creatinine 1.2 mg/dL (0.7-1.3) Estimated GFR (Cockcroft-Gault) 58.3 BUN/Creatinine Ratio 29 (6-20) Glucose Level 139 mg/dL (70-99) Calcium Level 8.8 mg/dL (8.5-10.1) Total Bilirubin 1.0 mg/dL (0.2-1.0) Aspartate Amino Transf (AST/SGOT) 20 U/L (15-37) Alanine Aminotransferase (ALT/SGPT) 28 U/L (16-63) Alkaline Phosphatase 66 U/L (46-116) Creatine Kinase 105 U/L (39-308) Troponin I High Sensitivity 6 ng/L (4-75) WV-Gga-X-Type Natriuretic Peptide 108 pg/mL (0-449) Total Protein 6.5 g/dL (6.4-8.2) Albumin 3.8 g/dL (3.4-5.0) Albumin/Globulin Ratio 1.4 (1.0-1.7) Thyroid Stimulating Hormone (TSH) 5.002 uIU/mL (0.358-3.74) Ethyl Alcohol Level < 10 mg/dL (0-10) Urine Collection Type Unknown Urine Color (Auto) Light yellow Urine Turbidity Clear Urine pH (Auto) 6.0 (<5.0-8.0) Urine Specific [place] 1.014 (1.000-1.030) Urine Protein (Auto) Negative mg/dL (Negative) Urine Glucose (Auto)(UA) Negative mg/dL (Negative) Urine Ketones (Auto) Negative mg/dL (Negative) Urine Blood (Auto) Negative (Negative) Urine Nitrite Negative (Negative) Urine Bilirubin (Auto) Negative (Negative) Urine Urobilinogen (Auto) Normal mg/dL (Normal) Urine Leukocyte Esterase (Auto) Negative (Negative) Urine RBC 3-5 /HPF (0-2) Urine WBC 0 /HPF (0-4) Urine Squamous Epithelial Cells Occ /LPF Urine Bacteria 0 /HPF (0-FEW) Urine Opiates Screen Neg (NEG) Urine Methadone Screen Neg (NEG) Urine Barbiturates Neg (NEG) Urine Phencyclidine Screen Neg (NEG) Urine Amphetamine/Methamphetamine Neg (NEG) Urine Benzodiazepines Screen Neg (NEG) Urine Cocaine Screen Neg (NEG) Urine Cannabinoids Screen Neg (NEG) Urine Ethyl Alcohol Neg (NEG) Laboratory Tests Test 08/29/21 11:55 08/29/21 12:23 White Blood Count 7.2 x10^3/uL (4.0-11.0) Red Blood Count 4.74 x10^6/uL (4.30-5.70) Hemoglobin 14.3 g/dL (13.0-17.5) Hematocrit 43.2 % (39.0-53.0) Mean Corpuscular Volume 91 fL (79-100) Mean Corpuscular Hemoglobin 30 pg (25-35) Mean Corpuscular Hemoglobin Concent 33 g/dL (31-37) Red Cell Distribution Width 13.7 % (11.5-14.5) Platelet Count 224 x10^3/uL (140-400) Neutrophils (%) (Auto) 69 % (31-73) Lymphocytes (%) (Auto) 23 % (24-48) Monocytes (%) (Auto) 7 % (0-9) Eosinophils (%) (Auto) 1 % (0-3) Basophils (%) (Auto) 0 % (0-3) Neutrophils # (Auto) 4.9 x10^3/uL (1.8-7.7) Lymphocytes # (Auto) 1.6 x10^3/uL (1.0-4.8) Monocytes # (Auto) 0.5 x10^3/uL (0.0-1.1) Eosinophils # (Auto) 0.1 x10^3/uL (0.0-0.7) Basophils # (Auto) 0.0 x10^3/uL (0.0-0.2) Prothrombin Time 12.6 SEC (11.7-14.0) Prothromb Time International Ratio 1.0 (0.8-1.1) Activated Partial Thromboplast Time 27 SEC (24-38) Sodium Level 136 mmol/L (136-145) Potassium Level 4.1 mmol/L (3.5-5.1) Chloride Level 101 mmol/L (98-107) Carbon Dioxide Level 27 mmol/L (21-32) Anion Gap 8 (6-14) Blood Urea Nitrogen 35 mg/dL (8-26) Creatinine 1.2 mg/dL (0.7-1.3) Estimated GFR (Cockcroft-Gault) 58.3 BUN/Creatinine Ratio 29 (6-20) Glucose Level 139 mg/dL (70-99) Calcium Level 8.8 mg/dL (8.5-10.1) Total Bilirubin 1.0 mg/dL (0.2-1.0) Aspartate Amino Transf (AST/SGOT) 20 U/L (15-37) Alanine Aminotransferase (ALT/SGPT) 28 U/L (16-63) Alkaline Phosphatase 66 U/L (46-116) Creatine Kinase 105 U/L (39-308) Troponin I High Sensitivity 6 ng/L (4-75) NU-Lgb-J-Type Natriuretic Peptide 108 pg/mL (0-449) Total Protein 6.5 g/dL (6.4-8.2) Albumin 3.8 g/dL (3.4-5.0) Albumin/Globulin Ratio 1.4 (1.0-1.7) Thyroid Stimulating Hormone (TSH) 5.002 uIU/mL (0.358-3.74) Ethyl Alcohol Level < 10 mg/dL (0-10) Urine Collection Type Unknown Urine Color (Auto) Light yellow Urine Turbidity Clear Urine pH (Auto) 6.0 (<5.0-8.0) Urine Specific [place] 1.014 (1.000-1.030) Urine Protein (Auto) Negative mg/dL (Negative) Urine Glucose (Auto)(UA) Negative mg/dL (Negative) Urine Ketones (Auto) Negative mg/dL (Negative) Urine Blood (Auto) Negative (Negative) Urine Nitrite Negative (Negative) Urine Bilirubin (Auto) Negative (Negative) Urine Urobilinogen (Auto) Normal mg/dL (Normal) Urine Leukocyte Esterase (Auto) Negative (Negative) Urine RBC 3-5 /HPF (0-2) Urine WBC 0 /HPF (0-4) Urine Squamous Epithelial Cells Occ /LPF Urine Bacteria 0 /HPF (0-FEW) Urine Opiates Screen Neg (NEG) Urine Methadone Screen Neg (NEG) Urine Barbiturates Neg (NEG) Urine Phencyclidine Screen Neg (NEG) Urine Amphetamine/Methamphetamine Neg (NEG) Urine Benzodiazepines Screen Neg (NEG) Urine Cocaine Screen Neg (NEG) Urine Cannabinoids Screen Neg (NEG) Urine Ethyl Alcohol Neg (NEG) Medications Current Medications Sodium Chloride 1,000 ml @ 1,000 mls/hr 1X ONCE IV Last administered on 08/29/21at 12:27; Start 08/29/21 at 12:15; Stop 08/29/21 at 13:14; Status DC Ondansetron HCl (Zofran) 4 mg PRN Q8HRS PRN IVP NAUSEA/VOMITING; Start 08/29/21 at 13:30; Stop 08/30/21 at 13:29 Aspirin (Ecotrin) 325 mg DAILYWBKFT PO Last administered on 08/29/21at 17:03; Start 08/29/21 at 15:00 Aspirin (Aspirin Rectal Supp) 300 mg PRN DAILY PRN [place] IF UNABLE TO TAKE PO; Start 08/29/21 at 14:45 Iohexol (Omnipaque 350 Mg/ml) 75 ml 1X ONCE IV Last administered on 08/29/21at 14:49; Start 08/29/21 at 14:45; Stop 08/29/21 at 14:46; Status DC Info (CONTRAST GIVEN -- Rx MONITORING) 1 each PRN DAILY PRN MC SEE COMMENTS; Start 08/29/21 at 14:45; Stop 08/31/21 at 14:44 Aspirin (Aspirin Chewable) 81 mg DAILY PO ; Start 08/30/21 at 09:00; Status Cancel Atorvastatin Calcium (Lipitor) 40 mg HS PO ; Start 08/29/21 at 21:00 Lisinopril (Prinivil) 20 mg DAILY PO ; Start 08/29/21 at 19:00 Metoprolol Succinate (Toprol Xl) 50 mg DAILY PO ; Start 08/29/21 at 19:00 Tamsulosin HCl (Flomax) 0.4 mg DAILY PO ; Start 08/29/21 at 19:00 Zolpidem Tartrate (Ambien) 5 mg QHS PO Last administered on 08/29/21at 22:59; Start 08/29/21 at 22:30 Active Scripts Active Reported Flomax (Tamsulosin Hcl) 0.4 Mg Cap.er.24h 0.4 Mg PO DAILY Aspirin 81 Mg Tab.chew 81 Mg PO DAILY Atorvastatin Calcium 40 Mg Tablet 40 Mg PO HS Metoprolol Succinate ( Xl ) (Metoprolol Succinate) 25 Mg Tab.er.24h 50 Mg PO DAILY Lisinopril 20 Mg Tablet 20 Mg PO DAILY Vitals/I & O Vital Sign - Last 24 Hours 08/29/21 08/29/21 08/29/21 08/29/21 11:55 12:32 13:04 13:34 Temp 97.6 97.6 Pulse 59 56 60 58 Resp 18 18 18 16 B/P (MAP) 175/82 (113) 195/81 (119) 156/69 (98) 164/65 (98) Pulse Ox 100 100 100 99 O2 Delivery Room Air Room Air Room Air Room Air 08/29/21 08/29/21 08/29/21 08/29/21 14:04 16:57 19:00 20:00 Temp 97.7 97.7 Pulse 54 62 Resp 20 18 B/P (MAP) 176/75 (108) 164/51 (88) Pulse Ox 100 98 O2 Delivery Room Air Room Air Room Air 08/29/21 08/30/21 08/30/21 08/30/21 23:00 03:00 04:51 07:00 Temp 99.3 98.3 98.3 98.3 99.3 98.3 98.3 98.3 Pulse 73 54 54 56 Resp 16 18 18 16 B/P (MAP) 90/54 (66) 99/61 (74) 99/61 (74) 149/67 (94) Pulse Ox 95 97 97 98 Intake and Output 08/29/21 08/29/21 08/30/21 15:00 23:00 07:00 Intake Total 1000 ml Balance 1000 ml Images CTA HEAD AND NECK W/WO CONTRAST CLINICAL HISTORY: Confusion, dizziness. TECHNIQUE: Spiral high resolution axial images were obtained through the head, neck and superior mediastinum following bolus administration of intravenous contrast for CT angiography. 3D maximum intensity projection images also performed. CT Dose Reduction Employed: One or more of the following individualized dose reduction techniques were utilized for this examination: 1. Automated exposure control 2. Adjustment of the mA and/or kV according to patient size 3. Use of iterative reconstruction technique. COMPARISON: NECT head same day FINDINGS: BRAIN: No evidence of acute ischemic stroke or intracranial hemorrhage. NECK: Soft Tissues: Unremarkable. Spine: Multilevel cervicothoracic degenerative changes.. Lung Apices: Centrilobular emphysema and dependent subsegmental atelectasis. CT ARTERIOGRAM: Extracranial Circulation: Aortic Arch: Normal branching pattern from the aortic arch. No significant stenosis in the proximal brachiocephalic vessels. Carotid Stenosis: Right Common: No significant stenosis. Right Internal Carotid Plaque: Moderate mixed plaque in the carotid bulb. Right Internal Carotid Stenosis (% by NASCET Criteria): No significant stenosis. Left Common: No significant stenosis. Left Internal Carotid Plaque: Minimal mixed plaque in the carotid bulb. Left Internal Carotid Stenosis (% by NASCET Criteria): No significant stenosis. Cervical Vertebral Arteries: Patency: Bilateral Dominance: Left Intracranial Circulation: Anterior Circulation: No evidence of large vessel occlusion. Mild calcified plaque in the intracranial portion of the bilateral internal carotid arteries. Vertebrobasilar Circulation: No evidence of large vessel occlusion. Diminutive vertebrobasilar circulation with diffusely small caliber vessels in the posterior circulation. IMPRESSION: No evidence of large vessel occlusion or significant carotid arterial stenosis. Diminutive vertebrobasilar circulation with diffusely small caliber vessels. Justicifation of Admission Dx: Justifications for Admission: Justification of Admission Dx: N/A BYRON CRAFT MD Aug 30, 2021 09:18
[2021-08-30 09:37] LABS: CHOLESTEROL/HDL RATIO 2.2
[2021-08-30] MEDS: ASPIRIN ENTERIC COATED 325 MG TABLET.DR. PO SCH (10:39)
[2021-08-30] MEDS: TAMSULOSIN 0.4 MG CAP.ER.24H. PO SCH (10:40)
--- NOTE | 2021-08-30 10:40 | RAD ---
EXAMINATION: MRI BRAIN WO CLINICAL HISTORY: Generalized weakness, confusion. TECHNIQUE: Multiplanar multisequential images obtained through the brain without intravenous contrast . COMPARISON: CT head and CTA head/neck 08/29/2021 FINDINGS: Acute Change: No evidence of restricted diffusion to suggest an acute infarct. Hemorrhage: No evidence of acute intracranial hemorrhage. Mass Lesion/Mass Effect: No evidence of intracranial mass or extra-axial fluid collection. No signifi cant mass effect. Parenchyma: No significant volume loss for age. Parenchymal signal and morphology otherwise within no rmal limits. Ventricles: Normal caliber and morphology. Skull Base: Hypothalamic and pituitary regions grossly unremarkable. Craniocervical junction within n ormal limits. No evidence of suspicious marrow replacement process. Vasculature: Large vessel and dural venous sinus flow voids within normal limits. Other: Paranasal sinuses and mastoids clear. Right intraocular lens implant. Orbits and extracranial soft tissues otherwise unremarkable. IMPRESSION: No evidence of acute intracranial abnormality. Electronically signed by: Romain Diana DO (08/30/2021 10:38 AM) [id number]
[2021-08-30 10:41] VITALS: BP 149/67
[2021-08-30] MEDS: LISINOPRIL 20 MG TABLET PO SCH (10:41)
[2021-08-30] MEDS: METOPROLOL SUCC 24HR ER 50 MG TAB.ER.24H. PO SCH (10:41)
--- NOTE | 2021-08-30 11:07 | PDOC ---
[facility] [facility] PROGRESS NOTE Date of Service DOS: DATE: 08/30/21 TIME: 11:06 Chief Complaint Chief Complaint Neuro symptoms Hypertensive urgency History of Present Illness History of Present Illness 08/30/2021 Patient seen and examined Discussed with RN Chart reviewed Discussed with neurology he is okay with the patient discharge and after MRI if it is negative Vitals/I&O Vitals/I&O: Vital Signs Date Time Temp Pulse Resp B/P (MAP) Pulse Ox O2 Delivery O2 Flow Rate FiO2 08/30/21 10:41 56 149/67 08/30/21 07:00 98.3 16 98 98.3 08/29/21 20:00 Room Air I & O 08/29/21 08/29/21 08/30/21 15:00 23:00 07:00 Intake Total 1000 ml Balance 1000 ml Physical Exam General: Alert Heart: Regular rate Lungs: Clear Abdomen: Normal bowel sounds Extremities: No clubbing Skin: No rashes Labs Labs: Laboratory Tests Test 08/29/21 11:55 08/29/21 12:23 08/30/21 07:50 08/30/21 08:10 White Blood Count 7.2 x10^3/uL (4.0-11.0) 7.8 x10^3/uL (4.0-11.0) Red Blood Count 4.74 x10^6/uL (4.30-5.70) 4.65 x10^6/uL (4.30-5.70) Hemoglobin 14.3 g/dL (13.0-17.5) 14.1 g/dL (13.0-17.5) Hematocrit 43.2 % (39.0-53.0) 42.5 % (39.0-53.0) Mean Corpuscular Volume 91 fL (79-100) 91 fL (79-100) Mean Corpuscular Hemoglobin 30 pg (25-35) 30 pg (25-35) Mean Corpuscular Hemoglobin Concent 33 g/dL (31-37) 33 g/dL (31-37) Red Cell Distribution Width 13.7 % (11.5-14.5) 14.0 % (11.5-14.5) Platelet Count 224 x10^3/uL (140-400) 221 x10^3/uL (140-400) Neutrophils (%) (Auto) 69 % (31-73) 75 % (31-73) Lymphocytes (%) (Auto) 23 % (24-48) 17 % (24-48) Monocytes (%) (Auto) 7 % (0-9) 7 % (0-9) Eosinophils (%) (Auto) 1 % (0-3) 1 % (0-3) Basophils (%) (Auto) 0 % (0-3) 0 % (0-3) Neutrophils # (Auto) 4.9 x10^3/uL (1.8-7.7) 5.9 x10^3/uL (1.8-7.7) Lymphocytes # (Auto) 1.6 x10^3/uL (1.0-4.8) 1.4 x10^3/uL (1.0-4.8) Monocytes # (Auto) 0.5 x10^3/uL (0.0-1.1) 0.5 x10^3/uL (0.0-1.1) Eosinophils # (Auto) 0.1 x10^3/uL (0.0-0.7) 0.1 x10^3/uL (0.0-0.7) Basophils # (Auto) 0.0 x10^3/uL (0.0-0.2) 0.0 x10^3/uL (0.0-0.2) Prothrombin Time 12.6 SEC (11.7-14.0) Prothromb Time International Ratio 1.0 (0.8-1.1) Activated Partial Thromboplast Time 27 SEC (24-38) Sodium Level 136 mmol/L (136-145) 136 mmol/L (136-145) Potassium Level 4.1 mmol/L (3.5-5.1) 4.5 mmol/L (3.5-5.1) Chloride Level 101 mmol/L (98-107) 103 mmol/L (98-107) Carbon Dioxide Level 27 mmol/L (21-32) 26 mmol/L (21-32) Anion Gap 8 (6-14) 7 (6-14) Blood Urea Nitrogen 35 mg/dL (8-26) 26 mg/dL (8-26) Creatinine 1.2 mg/dL (0.7-1.3) 1.2 mg/dL (0.7-1.3) Estimated GFR (Cockcroft-Gault) 58.3 58.3 BUN/Creatinine Ratio 29 (6-20) Glucose Level 139 mg/dL (70-99) 105 mg/dL (70-99) Calcium Level 8.8 mg/dL (8.5-10.1) 8.7 mg/dL (8.5-10.1) Total Bilirubin 1.0 mg/dL (0.2-1.0) Aspartate Amino Transf (AST/SGOT) 20 U/L (15-37) Alanine Aminotransferase (ALT/SGPT) 28 U/L (16-63) Alkaline Phosphatase 66 U/L (46-116) Creatine Kinase 105 U/L (39-308) Troponin I High Sensitivity 6 ng/L (4-75) VV-Pnj-M-Type Natriuretic Peptide 108 pg/mL (0-449) Total Protein 6.5 g/dL (6.4-8.2) Albumin 3.8 g/dL (3.4-5.0) Albumin/Globulin Ratio 1.4 (1.0-1.7) Thyroid Stimulating Hormone (TSH) 5.002 uIU/mL (0.358-3.74) Ethyl Alcohol Level < 10 mg/dL (0-10) Urine Collection Type Unknown Urine Color (Auto) Light yellow Urine Turbidity Clear Urine pH (Auto) 6.0 (<5.0-8.0) Urine Specific [place] 1.014 (1.000-1.030) Urine Protein (Auto) Negative mg/dL (Negative) Urine Glucose (Auto)(UA) Negative mg/dL (Negative) Urine Ketones (Auto) Negative mg/dL (Negative) Urine Blood (Auto) Negative (Negative) Urine Nitrite Negative (Negative) Urine Bilirubin (Auto) Negative (Negative) Urine Urobilinogen (Auto) Normal mg/dL (Normal) Urine Leukocyte Esterase (Auto) Negative (Negative) Urine RBC 3-5 /HPF (0-2) Urine WBC 0 /HPF (0-4) Urine Squamous Epithelial Cells Occ /LPF Urine Bacteria 0 /HPF (0-FEW) Urine Opiates Screen Neg (NEG) Urine Methadone Screen Neg (NEG) Urine Barbiturates Neg (NEG) Urine Phencyclidine Screen Neg (NEG) Urine Amphetamine/Methamphetamine Neg (NEG) Urine Benzodiazepines Screen Neg (NEG) Urine Cocaine Screen Neg (NEG) Urine Cannabinoids Screen Neg (NEG) Urine Ethyl Alcohol Neg (NEG) Triglycerides Level 48 mg/dL (0-150) Cholesterol Level 114 mg/dL (0-200) LDL Cholesterol, Calculated 51 mg/dL (0-100) VLDL Cholesterol, Calculated 10 mg/dL (0-40) Non-HDL Cholesterol Calculated 61 mg/dL (0-129) HDL Cholesterol 53 mg/dL (40-60) Cholesterol/HDL Ratio 2.2 Assessment and Plan Assessmemt and Plan Problems Medical Problems: (1) Confusion Status: Acute (2) Generalized weakness Status: Acut Resolving hypertensive urgency Plan If MRI is negative will discharge Per neurologist input please see the following we certainly agree and appreciate their input Impression: Global neurological issues, nothing that focal, nonfocal exam, and symptoms are improving. I suspect this is hypertensive encephalopathy. I find no evidence of stroke. There are no obvious other metabolic issues. Recommendations: Permissive hypertension for now Aspirin CT angiogram today MRI of the brain on a routine basis Comment Review of Relevant I have reviewed the following items nicole (where applicable) has been applied. Medications: Current Medications Medications (Trade) Dose Ordered Sig/Kishore Route PRN Reason Start Time Stop Time Status Last Admin Dose Admin Sodium Chloride 1,000 ml @ 1,000 mls/hr 1X ONCE IV 08/29/21 12:15 08/29/21 13:14 DC 08/29/21 12:27 Aspirin (Ecotrin) 325 mg [id number] PO 08/29/21 15:00 08/30/21 10:39 Iohexol (Omnipaque 350 Mg/ml) 75 ml 1X ONCE IV 08/29/21 14:45 08/29/21 14:46 DC 08/29/21 14:49 Lisinopril (Prinivil) 20 mg DAILY PO 08/29/21 19:00 08/30/21 10:41 Metoprolol Succinate (Toprol Xl) 50 mg DAILY PO 08/29/21 19:00 08/30/21 10:41 Tamsulosin HCl (Flomax) 0.4 mg DAILY PO 08/29/21 19:00 08/30/21 10:40 Zolpidem Tartrate (Ambien) 5 mg QHS PO 08/29/21 22:30 08/29/21 22:59 Justifications for Admission Other Justification CASTLE,NIAL K III DO Aug 30, 2021 11:07
--- NOTE | 2021-08-30 12:35 | NUR ---
Discharge Note: PROSPER SINGH BARNARD Discharge instructions and discharge home medications reviewed with Patient and a copy given. All questions have been answered and understanding verbalized. The following instructions and handouts were given: follow up instructions, medication education. Discontinued lines and drains: 20 guage right AC, tip intact. patient tolerated well. Patient discharged to home with self care via .
--- NOTE | 2021-08-30 20:53 | DS ---
DATE OF DISCHARGE: 08/30/2021 ADMITTING DIAGNOSIS: Neurologic symptoms. DISCHARGE DIAGNOSIS: Resolving hypertensive urgency, probable noncompliance. CONSULTS: Neurology. PROCEDURES: None. HOSPITAL COURSE: The patient is a pleasant 81-year-old male who presented with some neurologic symptoms. He was dizzy. He was lightheaded. He was a little confused. We admitted him, consulted Dr. Umana. He feels that this was most likely hypertensive urgency. We will get an MRI, but if that is negative, we plan to discharge. His pressures are down today. DISPOSITION: Home. ACTIVITY: As tolerated. DIET: Low sodium. DISCHARGE MEDICATIONS: Please see the MRAD. OTHER MEDICATIONS: Aspirin 81 a day, atorvastatin 40 a day, lisinopril 20 a day, metoprolol 25 a day, Flomax 0.4 daily. TOTAL TIME: [address]: Carlotta TID: [id number]
== END 2021-08-30 12:09 | disposition home or self-care (01) ==
LOC: ER 11:53 → ED HOLD 13:00 → 2 NORTH 14:43
PROVIDERS: ADMIT Internal Medicine; ATTEND Internal Medicine
DX: I16.0 Hypertensive urgency (principal); R41.0 Disorientation, unspecified; R53.1 Weakness; I63.9 Cerebral infarction, unspecified; I10 Essential (primary) hypertension; R55 Syncope and collapse; R29.700 NIHSS score 0; Z91.19 Patient's noncompliance with other medical treatment and regimen; Z95.5 Presence of coronary angioplasty implant and graft; Z79.82 Long term (current) use of aspirin; Z79.899 Other long term (current) drug therapy; Z98.890 Other specified postprocedural states
CPT/HCPCS: 36415; 70450; 70496; 70498; 70551; 80048; 80053; 80061; 80307; 81001; 82550; 83880; 84443; 84484; 85025; 85610; 85730; 92610; 93005; 96360; 96361; 97161; 97165; 99285; G0378; G0480; J7030; Q9967; G0379